=== PATIENT | female | born 1990 | race Caucasian/White ===

== ENCOUNTER 2016-07-08 02:09 | Emergency (ER) | payer MEDICAID ==
[~2016-07-08] VITALS: Ht 149.9 cm; Wt 59.0 kg
[2016-07-08] MEDS ORDERED: KETOROLAC 60MG/2ML VIAL IM ONE (03:45)
[2016-07-08 06:38] VITALS: BP 104/64
== END 2016-07-08 06:40 | disposition home or self-care (01) ==
LOC: ER 02:11
DX: M54.30 Sciatica, unspecified side (principal)
CPT/HCPCS: 96372; 99283; J1885

== ENCOUNTER 2016-07-08 18:40 | Emergency (ER) | payer MEDICAID ==
[~2016-07-08] VITALS: Ht 149.9 cm; Wt 59.0 kg
[2016-07-08] MEDS ORDERED: KETOROLAC 60MG/2ML VIAL IM ONE (22:45)
[2016-07-08] MEDS ORDERED: CARISOPRODOL 350 MG TABLET PO ONE (22:45)
[2016-07-09 00:48] LABS: CLARITY URINE CLOUDY (CLEAR); COLOR URINE DARK YELLOW (YELLOW); GLUCOSE URINE NEGATIVE (NEGATIVE); KETONES URINE NEGATIVE (NEGATIVE); LEUKOCYTE ESTERASE URINE 1+ (NEGATIVE); NITRITE URINE NEGATIVE (NEGATIVE); OCCULT BLOOD URINE 2+ (NEGATIVE); PROTEIN URINE TRACE (NEGATIVE); SPECIFIC GRAVITY URINE 1.041 (1.005-1.030)
[2016-07-09 01:02] LABS: SQUAMOUS EPITHELIAL CELL URINE 3+ /lpf (RARE/1+); WBC URINE 15-25 /hpf (0-2)
[2016-07-09 01:03] LABS: RBC URINE 0-2 /hpf (0-2)
[2016-07-09 01:04] LABS: BACTERIA URINE 1+
[2016-07-09 01:30] VITALS: BP 110/76
== END 2016-07-09 03:13 | disposition home or self-care (01) ==
LOC: ER 23:14
DX: S39.012A Strain of muscle, fascia and tendon of lower back, initial encounter (principal); N39.0 Urinary tract infection, site not specified; Z88.8 Allergy status to other drugs, medicaments and biological substances; X50.9XXA Other and unspecified overexertion or strenuous movements or postures, initial encounter; Y93.89 Activity, other specified; Y92.89 Other specified places as the place of occurrence of the external cause; Y99.8 Other external cause status
CPT/HCPCS: 81001; 96372; 99283; J1885